=== PATIENT | female | born 1990 | race Caucasian/White ===

== ENCOUNTER 2019-06-25 20:22 | Emergency (ER) | payer OTHER ==
[~2019-06-25] VITALS: Ht 172.7 cm; Wt 77.1 kg
[2019-06-25 20:56] LABS: BASOPHILS ABSOLUTE AUTO 0.06 K/mm3 (0.00-0.23); BASOPHILS PERCENT AUTO 1 % (0-2); EOSINOPHILS ABSOLUTE AUTO 0.14 K/mm3 (0.00-0.68); EOSINOPHILS PERCENT AUTO 2 % (0-6); Hematocrit 43.7 % (33.0-51.0); Hemoglobin 14.6 g/dL (11.5-16.0); IMMATURE GRAN PERCENT AUTO 0 % (0-1); LYMPHOCYTES ABSOLUTE AUTO 3.17 K/mm3 (0.84-5.20); LYMPHOCYTES PERCENT AUTO 37 % (21-46); MONOCYTES ABSOLUTE AUTO 0.52 K/mm3 (0.16-1.47); MONOCYTES PERCENT AUTO 6 % (4-13); Mean Corpuscular HGB 30.1 pg (26.0-34.0); Mean Corpuscular HGB Conc 33.4 g/dL (31.5-36.5); Mean Corpuscular Volume 90 fL (80-100); Mean Platelet Volume 9.7 fL (9.1-12.4); NEUTROPHILS PERCENT AUTO 55 % (41-73); Platelet Count 247 K/mm3 (150-400); RDW Coefficient Variation 12.2 % (11.7-14.2); RDW Standard Deviation 39.9 fL (35.1-46.3); Red Blood Cell Count 4.85 M/mm3 (3.80-5.20); White Blood Cell Count 8.69 K/mm3 (4.00-11.30)
[2019-06-25 21:02] LABS: Source, Urine Clean Catch
[2019-06-25 21:04] LABS: Appearance, Urine Clear (Clear); Bilirubin, Urine Neg (Neg); Blood, Urine Neg (Neg); Color, Urine Yellow (P-Yellow); Glucose Qualitative, Urine Neg (Neg); Ketones, Urine Neg (Neg); Leukocyte Esterase, Urine 1+ (Neg); Nitrite, Urine Neg (Neg); Protein, Urine Neg (Neg); Urobilinogen, Urine NORM (Normal)
[2019-06-25 21:09] LABS: Bacteria Few /hpf; Red Blood Cells, Urine Not Seen /hpf (0-2); Squamous Epithelial Cells Few /hpf (Few); White Blood Cells, Urine 0-2 /hpf (0-5)
[2019-06-25 21:15] LABS: Alanine Aminotransfer (ALT/SGP 26 U/L (12-78); Albumin, Blood 4.2 g/dL (3.4-5.0); Albumin/Globulin Ratio 1.2 (0.8-1.8); Alk Phos 53 U/L (50-136); Anion Gap 5 mmol/L (6-16); Aspartate Aminotrans (AST/SGOT 17 U/L (12-37); Bilirubin, Total 0.3 mg/dL (0.1-1.0); Blood Urea Nitrogen 16 mg/dL (8-24); CO2, Blood 27 mmol/L (21-32); Calcium, Blood 8.9 mg/dL (8.5-10.1); Chloride, Blood 110 mmol/L (98-108); Creatinine, Blood 0.76 mg/dL (0.40-1.00); Globulin, Blood 3.4 g/dL (2.2-4.0); Glomerular Filtration Rate >60 (60-); Glucose, Blood 102 mg/dL (70-99); Potassium, Blood 3.9 mmol/L (3.5-5.5); Sodium, Blood 142 mmol/L (136-145); Total Protein, Blood 7.6 g/dL (6.4-8.2); Troponin I <0.015 ng/mL (0.000-0.040)
[2019-06-25] MEDS ORDERED: IBUP600 PO (23:14)
== END 2019-06-25 23:26 | disposition home or self-care (01) ==
LOC: ER 20:22
PROVIDERS: Physician Assistant
DX: R07.9 Chest pain, unspecified (principal); Z87.891 Personal history of nicotine dependence
CPT/HCPCS: 71046; 80053; 81001; 81025; 84484; 85025; 87086; 93005; 93010; 99285-25

== ENCOUNTER 2019-07-13 07:43 | Emergency (ER) | payer OTHER ==
[~2019-07-13] VITALS: Ht 172.7 cm; Wt 81.7 kg
[~2019-07-13 07:43] MED LIST: IBUP600 PO
[2019-07-13] MEDS ORDERED: HYDPAM50 PO (07:56)
[2019-07-13] MEDS ORDERED: Veetids 500500 MG PO (08:53)
[2019-07-13] MEDS ORDERED: IBUP800 PO (08:53)
== END 2019-07-13 09:07 | disposition home or self-care (01) ==
LOC: ER 07:43
DX: J02.9 Acute pharyngitis, unspecified (principal); Z87.891 Personal history of nicotine dependence
CPT/HCPCS: 87081; 87430; 99283; J1100

== ENCOUNTER 2020-07-21 06:39 | Emergency (ER) | payer OTHER ==
[~2020-07-21] VITALS: Ht 172.7 cm; Wt 86.2 kg
[~2020-07-21 06:39] MED LIST changes: +HYDPAM50 PO; +IBUP800 PO; +Veetids 500500 MG PO
[2020-07-21] MEDS ORDERED: AMOCLA875 PO ×2 (07:09→07:16)
== END 2020-07-21 07:20 | disposition home or self-care (01) ==
LOC: ER 06:39
DX: N61.0 Mastitis without abscess (principal); F17.210 Nicotine dependence, cigarettes, uncomplicated
CPT/HCPCS: 99283